=== PATIENT | male | born 1970 | race African-American/Black ===

== ENCOUNTER 2017-06-19 05:09 | Emergency (ER) | payer OTHER ==
[2017-06-19 05:23] VITALS: BP 130/88; PULSE 82; TEMP 98.4; BMI 26.9
--- NOTE | 2017-06-19 05:32 | PDOC ---
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 Patient said he has had the pain 1 day. Patient is not taken anything for the pain. Patient denies any trauma or injury to the area. Patient is otherwise healthy. 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 PAST MEDICAL HISTORY: no significant history PAST SURGICAL HISTORY: no significant history FAMILY HISTORY: no pertinant history SOCIAL HISTORY: Pt lives with family and is employed. MEDICATIONS: reviewed ALLERGIES: As per nursing notes Review of Systems General: No fevers or chills, no weakness, no weight loss HEENT: No change in vision. No sore throat,. No ear pain CardioVascular: No chest pain or shortness of breath Respiratory:No cough, or wheezing. Gastrointestinal: no nausea, vomitting, diarrhea or constipation, No rectal bleeding Genitourinary: No dysuria, hematuria, or frequency Musculoskeletal: Right foot pain as per history of present illness Neurologic: No headache, vertigo, dizziness or loss of consciousness Psychiatric: nor depression Skin: No rashes or easy bruising Endocrine: no increased thirst or abnormal weight change Allergic: no skin or latex allergy All other systems reviewed and normal GENERAL: The patient is awake, alert, and fully oriented, in no acute distress. HEAD: Normal with no signs of trauma. EYES: Pupils equal, round and reactive to light, extraocular movements intact, sclera anicteric, conjunctiva clear. EXTREMITIES: Right foot there is no swelling, ecchymosis or bony tenderness. There is some soft tissue tenderness of the lateral foot. Neurovascular distal is intact. NEUROLOGICAL: Normal speech, normal gait. grossly intact PSYCH: Normal mood, normal affect. SKIN: Warm, Dry, normal turgor, no rashes or lesions noted. Assessment and plan: This is a 47-year-old male with some tenderness to the right lateral foot. Patient otherwise is healthy. Patient was reassured that is most likely soft tissue or ligamentous in nature. Patient was given an anti- inflammatory told to continue it and follow-up with his primary care DrRoger if not improved by Wednesday of next week. Past History - Past Medical History Allergies/Adverse Reactions: Allergies Allergy/AdvReac Type Severity Reaction Status Date / Time No Known Allergies Allergy Verified 06/19/17 05:12 Home Medications: Ambulatory Orders NK [No Known Home Medication] 06/19/17 COPD: No - Suicide/Smoking/Psychosocial Hx Smoking History: Never smoked Have you smoked in the past 12 months: No Information on smoking cessation initiated: No Hx Alcohol Use: No Drug/Substance Use Hx: No Substance Use Type: None *Physical Exam - Vital Signs Last Vital Signs Temp Pulse Resp BP Pulse Ox 98.4 F 82 18 130/88 99 06/19/17 05:16 06/19/17 05:16 06/19/17 05:16 06/19/17 05:16 06/19/17 05:16 *DC/Admit/Observation/Transfer Diagnosis at time of Disposition: Pain of right heel - Discharge Dispostion Disposition: HOME Condition at time of disposition: Good Admit: No - Referrals - Patient Instructions Additional Instructions: For the pain take ibuprofen 3 tablets 3 times a day with food don't take on an empty stomach If not improved by Wednesday next week follow-up with your doctor or an orthopedist Return to the emergency department immediately with ANY new, persistent or worsening symptoms. Continue any medications as previously prescribed by your physician. You should follow up with your primary doctor as soon as possible regarding today's emergency department visit. . Please make sure your doctor reviews the results of your emergency evaluation. Thank you for coming to the Emergency Department today for your care. It was a pleasure to see you today. Please note that your evaluation is INCOMPLETE until you follow-up with your doctor. - Post Discharge Activity
[2017-06-19] MEDS ORDERED: IBUPROFEN 600 MG TABLET (FP) PO ONE ×2 (05:35→05:41)
== END 2017-06-19 05:46 | disposition home or self-care (01) ==
LOC: FER 05:09
DX: M79.671 Pain in right foot (principal)
CPT/HCPCS: 99282-25

== ENCOUNTER 2017-11-21 15:10 | Emergency (ER) | payer OTHER ==
[2017-11-21 15:17] VITALS: BP 142/94; PULSE 83; TEMP 98.1; BMI 27.1
--- NOTE | 2017-11-21 16:00 | PDOC ---
History of Present Illness <Gena Silva - Last Filed: 11/21/17 16:00> - General History Source: Patient Exam Limitations: No Limitations - History of Present Illness Initial Comments: 11/21/17 16:36 The patient is a 47 year old male with no significant PMH who presents to the emergency department with wheezing for 1 day. The patient reports that his wheezing began 4 hours . He reports that he usually uses an inhaler for his allergy symptoms. He reports that he was unaware that his inhaler was still full. The patient denies any chest pain, shortness of breath, headache or dizziness. He denies any fever, chills, cough, nausea, vomit, diarrhea, constipation or urinary symptoms. The patient denies any other complaints. <Fortino Mathis - Last Filed: 11/21/17 16:38> - General Chief Complaint: Respiratory Stated Complaint: WHEEZING Time Seen by Provider: 11/21/17 15:25 Past History - Past Medical History COPD: No Other medical history: SEASONAL ALLERGIES - Suicide/Smoking/Psychosocial Hx Smoking History: Never smoked Have you smoked in the past 12 months: No Hx Alcohol Use: No Drug/Substance Use Hx: No Substance Use Type: None <Gena Silva - Last Filed: 11/21/17 16:00> <Fortino Mathis - Last Filed: 11/21/17 16:38> - Past Medical History Allergies/Adverse Reactions: Allergies Allergy/AdvReac Type Severity Reaction Status Date / Time No Known Allergies Allergy Verified 11/21/17 15:11 Home Medications: Ambulatory Orders Albuterol Sulfate Inhaler - [Ventolin HFA Inhaler -] 1 - 2 inh PO QID PRN #1 inhaler 11/21/17 Albuterol Sulfate [Proair Respiclick] 2 mcg IH Q6H PRN 11/21/17 Review of Systems - Review of Systems Able to Perform ROS?: Yes Comments:: 11/21/17 16:36 GENERAL/CONSTITUTIONAL: No fever or chills. No weakness. HEAD, EYES, EARS, NOSE AND THROAT: No change in vision. No ear pain or discharge. No sore throat. CARDIOVASCULAR: No chest pain or shortness of breath. RESPIRATORY: (+)wheezing. No cough, or hemoptysis. GASTROINTESTINAL: No nausea, vomiting, diarrhea or constipation. GENITOURINARY: No dysuria, frequency, or change in urination. MUSCULOSKELETAL: No joint or muscle swelling or pain. No neck or back pain. SKIN: No rash NEUROLOGIC: No headache, vertigo, loss of consciousness, or change in strength/ sensation. ENDOCRINE: No increased thirst. No abnormal weight change. HEMATOLOGIC/LYMPHATIC: No anemia, easy bleeding, or history of blood clots. ALLERGIC/IMMUNOLOGIC: No hives or skin allergy. <Fortino Mathis - Last Filed: 11/21/17 16:38> *Physical Exam - Vital Signs Last Vital Signs Temp Pulse Resp BP Pulse Ox 98.1 F 83 18 142/94 97 11/21/17 15:10 11/21/17 15:10 11/21/17 15:10 11/21/17 15:10 11/21/17 15:10 <Gena Silva - Last Filed: 11/21/17 16:00> - Vital Signs Last Vital Signs Temp Pulse Resp BP Pulse Ox 98.1 F 83 18 142/94 97 11/21/17 15:10 11/21/17 15:10 11/21/17 15:10 11/21/17 15:10 11/21/17 15:10 - Physical Exam Comments: 11/21/17 16:36 GENERAL: Awake, alert, and fully oriented, in no acute distress HEAD: No signs of trauma EYES: PERRLA, EOMI, sclera anicteric, conjunctiva clear ENT: Auricles normal inspection, hearing grossly normal, nares patent, oropharynx clear without exudates. Moist mucosa NECK: Normal ROM, supple, no lymphadenopathy, JVD, or masses LUNGS: Breath sounds equal, clear to auscultation bilaterally. No wheezes, and no crackles HEART: Regular rate and rhythm, normal S1 and S2, no murmurs, rubs or gallops ABDOMEN: Soft, nontender, normoactive bowel sounds. No guarding, no rebound. No masses EXTREMITIES: Normal range of motion, no edema. No clubbing or cyanosis. No cords, erythema, or tenderness NEUROLOGICAL: Cranial nerves II through XII grossly intact. Normal speech, normal gait SKIN: Warm, Dry, normal turgor, no rashes or lesions noted. <Fortino Mathis - Last Filed: 11/21/17 16:38> Medical Decision Making - Medical Decision Making 11/21/17 16:00 47yo male with RAD - wheezing earlier with his allergies. used his inhaler and requesting refill of his inhaler prior to leaving for [place] on vacation -no wheezing on exam -using his pump earlier improved his symptoms -no cp/sob now -no recent illnesses -will give Rx for albuterol and recommended otc allergy medicine <Gena Silva - Last Filed: 11/21/17 16:00> *DC/Admit/Observation/Transfer - Discharge Dispostion Decision to Admit order: No - Attestations Physician Attestion: 11/21/17 16:06 I, Dr. Gena Silva, DO, attest that this document has been prepared under my direction and personally reviewed by me in its entirety. I further attest, that it accurately reflects all work, treatment, procedures and medical decision -making performed by me. <Gena Silva - Last Filed: 11/21/17 16:00> - Attestations Scribe Attestion: 11/21/17 16:38 Documentation prepared by Fortino Mathis, acting as electromedical equipment technician for Gena Silva MD <Fortino Mathis - Last Filed: 11/21/17 16:38> Diagnosis at time of Disposition: Reactive airway disease - Discharge Dispostion Disposition: HOME Condition at time of disposition: Stable - Prescriptions Prescriptions: Albuterol Sulfate Inhaler - [Ventolin HFA Inhaler -] 1 - 2 inh PO QID PRN #1 inhaler PRN Reason: Wheezing - Referrals Referrals: Navjot Richard MD [Staff Physician] - - Patient Instructions Printed Discharge Instructions: DI for Shortness of Breath Additional Instructions: Please buy an over the counter allergy medicine - certrazine or zyrtec. Please use the inhaler as prescribed. Please follow up with the opthalmic tech. Please return to the ED with any further concerns.
== END 2017-11-21 16:27 | disposition home or self-care (01) ==
LOC: FER 15:10
DX: J45.909 Unspecified asthma, uncomplicated (principal)
CPT/HCPCS: 99283-25

== ENCOUNTER 2018-04-16 15:08 | Emergency (ER) | payer OTHER ==
[2018-04-16 15:26] VITALS: BP 127/96; PULSE 90; TEMP 98.4; BMI 26.9
--- NOTE | 2018-04-16 15:27 | PDOC ---
History of Present Illness <Marielos Trinidad - Last Filed: 04/16/18 15:25> - General History Source: Patient Exam Limitations: No Limitations - History of Present Illness Initial Comments: 04/16/18 15:40 The patient is a 47 year old male, with no significant past medical history, who presents to the emergency department with, a puncture wound to the top of the head. 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 He notes bleeding to the wound without pain, prompting his visit to the ER. He denies any LOC, weakness, change in sensation, or trauma to the trunk/ extremities. He denies any recent fevers, chills, headache or dizziness. He denies any recent nausea, vomit, diarrhea or constipation. He denies any recent chest pain or shortness of breath. He denies any recent dysuria, frequency, urgency or hematuria. Allergies: NKDA Past surgical history: None reported. Social History: Nonsmoker. Denies EtOH use and recreational drug use. <Aries Edwards - Last Filed: 04/16/18 15:40> - General Chief Complaint: Injury Stated Complaint: SCALP INJURY Time Seen by Provider: 04/16/18 15:25 Past History - Past Medical History COPD: No - Suicide/Smoking/Psychosocial Hx Smoking History: Never smoked Have you smoked in the past 12 months: No Hx Alcohol Use: No Drug/Substance Use Hx: No Substance Use Type: None <Marielos Trinidad - Last Filed: 04/16/18 15:25> <Aries Edwards - Last Filed: 04/16/18 15:40> - Past Medical History Allergies/Adverse Reactions: Allergies Allergy/AdvReac Type Severity Reaction Status Date / Time No Known Allergies Allergy Verified 04/16/18 15:18 Home Medications: Ambulatory Orders Albuterol Sulfate Inhaler - [Ventolin HFA Inhaler -] 1 - 2 inh PO QID PRN #1 inhaler 11/21/17 Review of Systems - Review of Systems Able to Perform ROS?: Yes Comments:: 04/16/18 15:40 GENERAL/CONSTITUTIONAL: No fever or chills. No weakness. +HEAD, EYES, EARS, NOSE AND THROAT: Puncture wound to the top of the head with active bleeding. No change in vision. No ear pain or discharge. No sore throat. CARDIOVASCULAR: No chest pain or shortness of breath. RESPIRATORY: No cough, wheezing, or hemoptysis. GASTROINTESTINAL: No nausea, vomiting, diarrhea or constipation. GENITOURINARY: No dysuria, frequency, or change in urination. MUSCULOSKELETAL: No joint or muscle swelling or pain. No neck or back pain. SKIN: No rash NEUROLOGIC: No headache, vertigo, loss of consciousness, or change in strength/ sensation. ENDOCRINE: No increased thirst. No abnormal weight change. HEMATOLOGIC/LYMPHATIC: No anemia, easy bleeding, or history of blood clots. ALLERGIC/IMMUNOLOGIC: No hives or skin allergy. All Other Systems: Reviewed and Negative <Aries Edwards - Last Filed: 04/16/18 15:40> *Physical Exam - Vital Signs Last Vital Signs Temp Pulse Resp BP Pulse Ox 98.4 F 90 15 127/96 96 04/16/18 15:17 04/16/18 15:17 04/16/18 15:17 04/16/18 15:17 04/16/18 15:17 - Physical Exam Comments: 04/16/18 15:40 GENERAL: Awake, alert, and fully oriented, in no acute distress +HEAD: Small puncture wound to the top of the head. Minimal active bleeding. EYES: PERRLA, EOMI, sclera anicteric, conjunctiva clear ENT: Auricles normal inspection, hearing grossly normal, nares patent. Moist mucosa NECK: Normal ROM, supple, no lymphadenopathy, JVD, or masses LUNGS: Breath sounds equal, clear to auscultation bilaterally. No wheezes, and no crackles HEART: Regular rate and rhythm, normal S1 and S2, no murmurs, rubs or gallops ABDOMEN: Soft, nontender, normoactive bowel sounds. No guarding, no rebound. No masses EXTREMITIES: Normal range of motion, no edema. No erythema or tenderness. DP/PT pulses 2+ and symmetric. Warm and well perfused. NEUROLOGICAL: Moves all extremities. Normal speech, normal gait SKIN: Warm, Dry, normal turgor, no rashes or lesions noted. 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 states tetanus in june. no loc. no weakness. on exam puncate wound superifical. scant bleeding. bacitrainc and dressing. no suture or leland needed. dc home. <Marielos Trinidad - Last Filed: 04/16/18 15:25> *DC/Admit/Observation/Transfer - Discharge Dispostion Decision to Admit order: No <Marielos Trinidad - Last Filed: 04/16/18 15:25> - Attestations Scribe Attestion: 04/16/18 15:40 Documentation prepared by Aries Edwards, acting as clinical laboratory medical director for Marielos Trinidad MD. <Aries Edwards - Last Filed: 04/16/18 15:40> Diagnosis at time of Disposition: Head injury, Scalp contusion - Discharge Dispostion Disposition: HOME Condition at time of disposition: Improved - Patient Instructions Printed Discharge Instructions: DI for Closed Head Injury, DI for Abrasion Additional Instructions: you can take tylenol 500 mg every 8 hrs as needed for pain. apply bacitracin twice daily to the wound. return for fever, nausea vomiting fever or any other concerns. follow up with your primary doctor.
== END 2018-04-16 16:15 | disposition home or self-care (01) ==
LOC: FER 15:08
DX: S01.03XA Puncture wound without foreign body of scalp, initial encounter (principal); W22.8XXA Striking against or struck by other objects, initial encounter; Y93.89 Activity, other specified; Y92.239 Unspecified place in hospital as the place of occurrence of the external cause; Y99.0 Civilian activity done for income or pay
CPT/HCPCS: 99282-25

== ENCOUNTER 2020-05-08 16:23 | Emergency (ER) | payer OTHER | END 2020-05-08 16:42 | disposition home or self-care (01) | LOC: JVIRT 16:23 | DX: Z11.59 Encounter for screening for other viral diseases (principal) | CPT/HCPCS: C9803; Q3014-GT; U0003 ==

== ENCOUNTER 2020-06-07 18:35 | Emergency (ER) | payer OTHER ==
[2020-06-07 18:52] VITALS: BP 133/88; PULSE 94; TEMP 98.6; BMI 27.9
[2020-06-07] MEDS ORDERED: IBUPROFEN 600 MG TABLET (FP) PO ONE ×2 (19:23→19:26)
== END 2020-06-07 19:28 | disposition home or self-care (01) ==
LOC: FER 18:35
DX: M54.5 Low back pain (principal); R07.82 Intercostal pain
CPT/HCPCS: 71046-TC-FY; 71101-TC-LT-FY; 72100-TC-FY; 99285-25

== ENCOUNTER 2021-10-09 18:32 | Emergency (ER) | payer OTHER ==
[2021-10-09 18:46] VITALS: BP 122/85; PULSE 97; TEMP 97.5; BMI 27.1
[2021-10-09] MEDS ORDERED: IBUPROFEN 600 MG TABLET (FP) PO ONE ×2 (18:56→18:57)
== END 2021-10-09 19:44 | disposition home or self-care (01) ==
LOC: JER 18:32
DX: M25.512 Pain in left shoulder (principal); V49.40XA Driver injured in collision with unspecified motor vehicles in traffic accident, initial encounter
CPT/HCPCS: 73030-TC-LT-FY; 99283-25